=== PATIENT | female | born 1955 | race Caucasian/White ===

== ENCOUNTER 2022-01-20 11:27 | Outpatient (CLI) | payer MEDICARE, BC | END 2022-01-20 11:28 | disposition home or self-care (01) | LOC: LABBT 11:27 | PROVIDERS: ATTEND Plastic Surgery | DX: Z20.822 Contact with and (suspected) exposure to COVID-19 (principal) | CPT/HCPCS: 87811 ==

== ENCOUNTER 2022-03-02 11:27 | Outpatient (CLI) | payer MEDICARE, BC | END 2022-03-02 11:28 | disposition home or self-care (01) | LOC: LABBT 11:27 | PROVIDERS: ATTEND Plastic Surgery | DX: Z20.822 Contact with and (suspected) exposure to COVID-19 (principal) | CPT/HCPCS: 87811 ==

== ENCOUNTER 2022-03-05 09:45 | Day surgery (SDC) | payer MEDICARE, BC ==
[2022-03-03 13:14] VITALS: BMI 25.4
[2022-03-05] MEDS ORDERED: CEFAZOLIN 2 GM VIAL ONE (10:18)
[2022-03-05] MEDS ORDERED: Lidocaine 1% MPF 2 ML VIAL ONE (10:18)
[2022-03-05] MEDS ORDERED: Sodium Chloride 0.9% 100 ML ONE (10:19)
[2022-03-05] MEDS ORDERED: fentaNYL Citrate/PF 100 MCG/2 ML SYRINGE ONE (11:27)
[2022-03-05] MEDS ORDERED: Dexmedetomidine 200 MCG/2 ML VIAL ONE (11:27)
[2022-03-05] MEDS ORDERED: Bupivacaine/Epinephrine 0.25% 30 ML VIAL ONE (11:41)
[2022-03-05] MEDS ORDERED: Bacitracin Zinc Ointment 30 gm TUBE ONE (11:41)
[2022-03-05] MEDS ORDERED: Midazolam HCl 2 mg/2 ml Vial ONE (12:22)
[2022-03-05] MEDS ORDERED: Ondansetron PF 4 MG/2 ML Vial ONE (12:47)
[2022-03-05] MEDS ORDERED: Glycopyrrolate 0.2 MG/ML 5 ML SYRINGE ONE (12:47)
[2022-03-05] MEDS ORDERED: diphenhydrAMINE 50 MG/ML VIAL ONE (12:47)
[2022-03-05] MEDS ORDERED: ePHEDrine 50 MG/ML VIAL ONE (12:47)
[2022-03-05] MEDS ORDERED: Labetalol HCl 100 MG/20 ML VIAL ONE ×2 (12:47→14:16)
[2022-03-05] MEDS ORDERED: PROPOFOL 200 MG/20 ML VIAL ONE (12:47)
[2022-03-05] MEDS ORDERED: hydrALAZINE 20 MG/ML VIAL ONE (14:22)
== END 2022-03-05 19:10 | disposition home or self-care (01) ==
LOC: SDC 09:45
PROVIDERS: ATTEND Plastic Surgery
PROC: 0HBBXZZ Excision of Right Upper Arm Skin, External Approach (ICD-10-PCS; principal; 2022-03-05)
DX: D03.61 Melanoma in situ of right upper limb, including shoulder (principal); E89.6 Postprocedural adrenocortical (-medullary) hypofunction; Z79.890 Hormone replacement therapy; Z79.899 Other long term (current) drug therapy; Z88.8 Allergy status to other drugs, medicaments and biological substances
CPT/HCPCS: 88305; 88342; J0360; J0690; J1200; J2250; J2405; J2704; J3490

== ENCOUNTER 2022-04-07 09:58 | Outpatient (CLI) | payer MEDICARE, BC | END 2022-04-07 09:59 | disposition home or self-care (01) | LOC: TBSIIMAG 09:58 | PROVIDERS: ATTEND Orthopaedic Surgery | DX: M54.31 Sciatica, right side (principal); M47.816 Spondylosis without myelopathy or radiculopathy, lumbar region; M47.817 Spondylosis without myelopathy or radiculopathy, lumbosacral region; M47.815 Spondylosis without myelopathy or radiculopathy, thoracolumbar region | CPT/HCPCS: 72148 ==

== ENCOUNTER 2023-02-04 11:56 | Outpatient (CLI) | payer MEDICARE, BC | END 2023-02-04 11:57 | disposition home or self-care (01) | LOC: SCSMRI 11:56 | PROVIDERS: ATTEND Orthopaedic Surgery | DX: M24.811 Other specific joint derangements of right shoulder, not elsewhere classified (principal); M24.812 Other specific joint derangements of left shoulder, not elsewhere classified; M75.102 Unspecified rotator cuff tear or rupture of left shoulder, not specified as traumatic; M25.412 Effusion, left shoulder; M19.012 Primary osteoarthritis, left shoulder; S43.402A Unspecified sprain of left shoulder joint, initial encounter; M75.121 Complete rotator cuff tear or rupture of right shoulder, not specified as traumatic; S46.911A Strain of unspecified muscle, fascia and tendon at shoulder and upper arm level, right arm, initial encounter; S43.431A Superior glenoid labrum lesion of right shoulder, initial encounter ==